=== PATIENT | male | born 1990 | race Hispanic/Latino ===

== ENCOUNTER 2022-01-31 11:04 | Emergency (ER) | payer BC, SELFPAY ==
[2022-01-31 11:20] VITALS: BP 119/76; PULSE 51; RESP 16; TEMP 37.1; O2SAT 99
[2022-01-31 11:25] VITALS: BP 119/76; PULSE 51; RESP 16; TEMP 37.1; O2SAT 99
--- NOTE | 2022-01-31 11:46 | ED.SKABFB ---
HPI - Skin/Abscess/Foreign Bdy General Chief complaint: Skin/Abscess/Foreign Body Stated complaint: poison greta Time Seen by Provider: 01/31/22 11:47 Source: patient Mode of arrival: ambulatory Limitations: no limitations History of Present Illness HPI narrative: 31-year-old male presented for complaint of rash to face, onset 2 days ago after cutting down a tree. This morning he woke with his right eyes swollen shut. Rash is also to bilateral arms and upper chest. He endorses a history of poison greta reactions. He has been applying Benadryl cream. Denies lip, tongue, or throat swelling, dizziness shortness of breath or wheezing MD complaint: rash Related Data Allergies Allergy/AdvReac Type Severity Reaction Status Date / Time No Known Allergies Allergy Unverified 04/15/18 14:26 Review of Systems Review of Systems: CONSTITUTIONAL: Denies body aches, fever, chills, or sweats. EYES: Reports swelling Denies visual changes or discharge. ENT: Denies rhinorrhea, congestion, sore throat, or otalgia. CARDIOVASCULAR: Denies chest pain, palpitations, or edema. RESPIRATORY: Denies dyspnea. GASTROINTESTINAL: Denies abdominal pain, nausea, vomiting, or diarrhea. SKIN: reports rash, itching MUSCULOSKELETAL: Denies back pain, joint pain, or myalgia. NEUROLOGIC: Denies headache, numbness, tingling, or weakness. PMFSH Comments At time of signature, I have reviewed and agree with nursing past medical, surgical, social and family history unless otherwise noted. Please see nursing chart for further information. There is no relevant family history pertinent to the presenting complaint Exam Narrative: GENERAL: Well-appearing, no acute distress. EYES: Right periorbital swelling, erythema with eye unable to open on his own; conjunctivae clear, and EOMI. ENT: Mucous membranes moist. Oropharynx without edema, erythema or lesions. No tongue or lip swelling NECK: Supple. No lymphadenopathy CHEST: Clear to auscultation. No respiratory distress. HEART: Regular rate and rhythm. SKIN: Warm, dry. Erythematous papules to face and mid upper chest and bilateral arms. Bilateral arms have calamine lotion. NEURO: Alert and oriented x3. Course Course Emergency Course: Patient is aware of diagnosis, understands and agrees to treatment plan. Anticipatory guidance given. Patient agrees to follow-up as directed and is aware of reasons to seek care at the emergency department. Portions of this record may have been created with voice recognition software Level of Care: Express Care Visit Vital Signs Vital signs: Vital Signs Temperature 98.7 F 01/31/22 11:20 Pulse Rate 51 L 01/31/22 11:20 Respiratory Rate 16 01/31/22 11:20 Blood Pressure 119/76 01/31/22 11:20 Pulse Oximetry 99 01/31/22 11:20 Oxygen Delivery Room Air 01/31/22 11:20 Temperature 98.7 F 01/31/22 11:25 Pulse Rate 51 L 01/31/22 11:25 Respiratory Rate 16 01/31/22 11:25 Blood Pressure 119/76 01/31/22 11:25 Pulse Oximetry 99 01/31/22 11:25 Oxygen Delivery Room Air 01/31/22 11:25 Reviewed MDM - Skin/Abscess/Foreign Bdy MDM Narrative Medical decision making narrative: Does not appear at this time to be erythema multiforme, bullous, SJS, TEN Patient looks well, nontoxic, afebrile; No soft palate or uvula edema, no tongue, lip edema or other mucosal involvement, no respiratory compromise, appropriate for initial outpatient treatment; discussed the importance of follow-up, patient agrees. Right eye with mild improvement after steroid, Benadryl, and Pepcid given. Advised to start steroid and Pepcid tomorrow. is driving patient home. Instructed patient to go to nearest ER immediately for any worsening symptoms including but not limited to: fever, spreading rash, pain, sore throat, lip, tongue or throat swelling, headache, dizziness, chest pain, trouble breathing, or any symptoms concerning to the patient. Differential Diagnosis Differential
[2022-01-31] MEDS: methylPREDNISolone SOD SUCC 125 MG VIAL IM (11:58)
[2022-01-31] MEDS: diphenhydrAMINE HCl CAP 25 MG CAPSULE PO (11:59)
[2022-01-31] MEDS: FAMOTIDINE 20 MG TABLET 40 MG PO (11:59)
== END 2022-01-31 12:20 | disposition home or self-care (01) ==
PROVIDERS: Emergency Provider Nurse Practitioner Family
DX: L23.7 Allergic contact dermatitis due to plants, except food (principal)
CPT/HCPCS: 96372; 99213; A9270; G0463; J2930

== ENCOUNTER 2025-04-23 11:49 | Emergency (ER) | payer BC, SELFPAY ==
[2025-04-23 12:01] VITALS: BP 123/78; PULSE 71; RESP 16; TEMP 36.7; O2SAT 100
--- NOTE | 2025-04-23 12:46 | ED.MALEGU ---
HPI - Male Genitourinary General Chief complaint: Urogenital-Male Stated complaint: STD Time Seen by Provider: 04/23/25 12:40 Source: patient Mode of arrival: ambulatory Limitations: no limitations History of Present Illness HPI Narrative: 35-year-old male here for STI testing. No symptoms. Patient states that his wants him tested. She was recently tested and all of her results were negative. All systems reviewed and negative except as noted above. Related Data Allergies Allergy/AdvReac Type Severity Reaction Status Date / Time No Known Allergies Allergy Unverified 04/15/18 14:26 PMFSH Comments At time of signature, agree with nursing past medical, surgical, social and family history. There is no relevant family history pertinent to the presenting complaint. Exam Narrative: GENERAL: This is a well-nourished, well-developed patient, in no apparent distress. HEAD: normocephalic, atraumatic. EYES: PERRL. Sclera clear/white. Vision is grossly intact. EARS: External ears normal NOSE: External nose normal NECK: Neck supple, non-tender without lymphadenopathy, masses or thyromegaly. CARDIOVASCULAR: Regular rate and rhythm without murmurs, gallops, or rubs. RESPIRATORY: Clear to auscultation. Breath sounds equal bilaterally. No wheezes, rales, or rhonchi. SKIN: warm, Dry, intact with no suspicious lesions or rash, good texture and turgor. NEURO: awake, alert, and oriented to person, place and time. There were no obvious focal neurologic abnormalities. EXTREMITIES: No joint tenderness, effusion, or edema noted. Course Course Level of Care: Express Care Visit Vital Signs Vital signs: Vital Signs Temperature 36.7 C 04/23/25 12:01 Pulse Rate 71 04/23/25 12:01 Respiratory Rate 16 04/23/25 12:01 Blood Pressure 123/78 04/23/25 12:01 Pulse Oximetry 100 04/23/25 12:01 Oxygen Delivery Room Air 04/23/25 12:01 Temperature 36.7 C 04/23/25 12:01 Pulse Rate 71 04/23/25 12:01 Respiratory Rate 16 04/23/25 12:01 Blood Pressure 123/78 04/23/25 12:01 Pulse Oximetry 100 04/23/25 12:01 Oxygen Delivery Room Air 04/23/25 12:01 Reviewed MDM - Male Genitourinary MDM Narrative Medical decision making narrative: patient tested for gonorrhea, chlamydia and Trichomonas. Patient was not treated with antibiotics today due to no exposure and denies symptoms. Will wait for test results prior to treating. Discharge Plan Discharge Clinical Impression: Concern about sexually transmitted infection in male without diagnosis Patient Disposition: Home Condition: Stable Instructions: Sexually Transmitted Diseases (ED) Additional Instructions: you were tested for chlamydia, gonorrhea and Trichomonas today. Test results will take 48-72 hours. If you have a positive result we will call you. Patient Language: Amharic Prescriptions: No Action famotidine [Pepcid] 40 mg tablet 40 mg PO DAILY Qty: 5 0RF methylprednisolone [Medrol (Bernardo)] 4 mg tablets,dose pack See Rx Instructions .ROUTE .COMPLEX Qty: 21 0RF Rx Instructions: orally per package directions Follow-up/Referrals: PHYSICIAN,[employer] [facility] [Primary Care Provider, Internal Medicine] Time of Disposition: 12:46
[2025-04-23 19:26] LABS: Trichomonas Vag PCR NOT DETECTED (NOT DETECTE)
== END 2025-04-23 13:02 | disposition home or self-care (01) ==
PROVIDERS: Emergency Provider Nurse Practitioner Family
DX: Z11.3 Encounter for screening for infections with a predominantly sexual mode of transmission (principal)
CPT/HCPCS: 87491; 87591; 87661; 99213; G0463